=== PATIENT | female | born 2000 | race Caucasian/White ===

== ENCOUNTER 2023-10-09 20:44 | Emergency (ER) | payer OTHER ==
[2023-10-09 20:51] VITALS: RESP 18; TEMP 98.1; BMI 21.0
[2023-10-09] MEDS: SODIUM CHLORIDE 1,000 ML IV STA (21:31)
[2023-10-09] MEDS ORDERED: MECLIZINE HCL 25 MG TABLET (FP) ONE (21:34)
[2023-10-09 21:40] LABS: BASO % 0.7 % (0-2.0); EOS % 1.5 % (0-4.5); HEMATOCRIT 40.5 % (32.4-45.2); HEMOGLOBIN 13.6 GM/dL (10.7-15.3); LYMPH % 35.9 % (8-40); MCH 30.1 pg (25.7-33.7); MCHC 33.5 g/dl (32.0-36.0); MEAN CELL VOLUME 89.9 fl (80-96); MEAN PLT VOLUME 8.2 fl (7.5-11.1); MONO % 5.4 % (3.8-10.2); NEUT % 56.5 % (42.8-82.8); PLATELET COUNT 333 10^3/uL (134-434); RBC 4.51 M/mm3 (3.60-5.2); RDW 13.2 % (11.6-15.6); WHITE BLOOD COUNT 6.6 K/mm3 (4.0-10.0)
[2023-10-09] MEDS: MECLIZINE HCL 25 MG TABLET (FP) PO ONE (21:40)
[2023-10-09 22:02] LABS: POTASSIUM 4.3 mmol/L (3.5-5.1)
[2023-10-09 22:04] LABS: CALCIUM 9.3 mg/dL (8.5-10.1)
[2023-10-09 22:05] LABS: ALBUMIN 4.1 g/dl (3.4-5.0); BLOOD UREA NITROGEN 9.7 mg/dL (7-18)
[2023-10-09 22:07] LABS: CREATININE 0.6 mg/dL (0.55-1.3)
[2023-10-09 22:09] LABS: BILIRUBIN,TOTAL 0.4 mg/dL (0.2-1); TOT PROT 7.7 g/dl (6.4-8.2)
[2023-10-09 22:49] VITALS: BP 100/61; PULSE 70
== END 2023-10-09 22:49 | disposition home or self-care (01) ==
LOC: JER 20:44
PROC: 3E0337Z Introduction of Electrolytic and Water Balance Substance into Peripheral Vein, Percutaneous Approach (ICD-10-PCS; principal; 2023-10-09)
PROC: 3E0337Z Introduction of Electrolytic and Water Balance Substance into Peripheral Vein, Percutaneous Approach (ICD-10-PCS; 2023-10-09)
DX: R42 Dizziness and giddiness (principal); R53.1 Weakness; R11.0 Nausea
CPT/HCPCS: 36415; 80053; 83735; 84484; 84703; 85025; 85379; 93005; 93010; 99284-25